=== PATIENT | female | born 1955 | race Caucasian/White ===

== ENCOUNTER 2017-10-08 05:12 | Emergency (ER) | payer OTHER ==
[2017-10-08 05:54] LABS: ADD MAN DIFF? NO
[2017-10-08 06:01] LABS: WHITE BLOOD COUNT 2.8 10^3/ul (4.8-10.8)
[2017-10-08 06:01] LABS: ABNORMAL IP MESSAGE 1; BASOPHILS % 0.4 % (0.0-2.0); EOSINOPHILS # 0.1 10^3/ul (0.0-0.5); EOSINOPHILS % 2.2 % (0.0-7.0); HEMATOCRIT 40.7 % (37.0-47.0); HEMOGLOBIN 13.9 g/dl (12.0-16.0); LYMPHOCYTES # 1.3 10^3/ul (0.8-2.9); LYMPHOCYTES % 48.7 % (15.0-51.0); MEAN CORPUSCULAR HEMOGLOBIN 29.4 pg (29.0-33.0); MEAN CORPUSCULAR HGB CONC 34.2 g/dl (32.0-37.0); MEAN CORPUSCULAR VOLUME 86.2 fl (82.0-101.0); MEAN PLATELET VOLUME 13.3 fl (7.4-10.4); MONOCYTE # 0.3 10^3/ul (0.3-0.9); MONOCYTES % 12.4 % (0.0-11.0); NEUTROPHILS % 36.3 % (39.0-77.0); PLATELET COUNT 61 10^3/UL (140-415); RED BLOOD COUNT 4.72 10^6/ul (4.20-5.40)
[2017-10-08 06:24] LABS: ANION GAP 12 (8-16); BLOOD UREA NITROGEN 15 mg/dl (7-20); CALCIUM 9.6 mg/dl (8.4-10.2); CARBON DIOXIDE 27 mmol/L (21-31); CHLORIDE 108 mmol/L (97-110); GLUCOSE 193 mg/dl (70-220); POTASSIUM 3.5 mmol/L (3.5-5.1); SODIUM 143 mmol/L (135-144)
[2017-10-08 06:36] LABS: TROPONIN-I < 0.012 ng/ml (0.00-0.12)
[2017-10-08 06:43] LABS: POSITIVE DIFF @See below
[2017-10-08] MEDS ORDERED: NITROGLYCERIN (SL) 0.4 MG TAB SL (07:00)
[2017-10-08] MEDS: NITROGLYCERIN 2% 1 GM OINT PKT TD (07:03)
[2017-10-08] MEDS: ASPIRIN 81 MG TAB PO (07:04)
== END 2017-10-08 07:58 | disposition home or self-care (01) ==
LOC: E/R 05:12
DX: R07.89 Other chest pain (principal); I10 Essential (primary) hypertension; E11.9 Type 2 diabetes mellitus without complications
CPT/HCPCS: 36415; 71045; 80048; 84484; 85025; 93005; 99285-25

== ENCOUNTER 2019-02-18 19:54 | Emergency (ER) | payer MEDICARE, OTHER ==
[2019-02-18] MEDS: ACETAMINOPHEN 325 MG TAB PO (21:35)
[2019-02-18] MEDS: CEFTRIAXONE 1 GM INJ IM (22:37)
[2019-02-18] MEDS: LIDOCAINE 2% (MDV) 20 ML INJ INJ (22:54)
== END 2019-02-18 23:06 | disposition home or self-care (01) ==
LOC: FTE 19:54
DX: J18.9 Pneumonia, unspecified organism (principal); I10 Essential (primary) hypertension; E11.9 Type 2 diabetes mellitus without complications
CPT/HCPCS: 71046; 96372; 99284-25